=== PATIENT | female | born 1955 | race Caucasian/White ===

== ENCOUNTER → 2017-02-21 | Outpatient (CLI) | payer BC ==
[~2017-02-21] MED LIST: ALPRAZOLAM XR0.5 MG PO; AMITRIPTYLINE150 MG PO; ASPIRIN (CHILDR81 MG PO; BRILINTA90 MG PO; CALCIUM 600 +1 EAC6 PO; CLARITIN D 12 H1 TAB PO; ELAVIL25 MG PO; LIPITOR80 MG PO; METOPROLOL TART25 MG PO; TYLENOL EXTRA500 MG PO
== END ==
LOC: GBCOE 09:15
DX: Z12.31 Encounter for screening mammogram for malignant neoplasm of breast (principal)
CPT/HCPCS: G0202